=== PATIENT | male | born 1950 | race Caucasian/White ===

== ENCOUNTER 2018-08-26 12:55 | Emergency (ER) | payer MEDICARE, BC ==
[2018-08-26 14:11] LABS: #Basophils 0.1 thou/uL (0.0-0.2); #Eosinphils 0.2 thou/uL (0.0-0.7); #Lymphocytes 2.2 thou/uL (1.20-3.40); #Monocytes 0.5 thou/uL (0.11-0.59); #Neutrophils 4.2 thou/uL (1.40-6.50); %Basophils 0.7 % (0.0-1.0); %Eosinophils 2.3 % (0.0-10.0); %Lymphocytes 30.8 % (21.0-51.0); %Monocytes 6.8 % (0.0-10.0); %Neutrophils 59.3 % (42.0-75.0); Hemoglobin 13.5 g/dL (14.0-18.0); Mean Corpuscular HGB CONC 32.9 g/dL (32.0-36.0); Mean Corpuscular Hemoglobin 29.8 pg (27.0-31.0); Mean Corpuscular Volume 90.7 fL (78.0-98.0); Mean Platelet Volume 5.8 fL (7.4-10.4); Platelet Count 132 thou/uL (130-400); RBC Distribution Width 12.4 % (11.5-14.5); Red Blood Cell (RBC) Count 4.51 mill/uL (4.70-6.10); White Blood Cell (WBC) Count 7.1 thou/uL (4.8-10.8)
[2018-08-26 14:31] LABS: ALT (SGPT) 29 U/L (8-55); AST (SGOT) 16 U/L (5-34); Albumin 4.3 g/dL (3.4-4.8); Alkaline Phosphatase 65 U/L (40-150); Anion Gap 14 mmol/L (10-20); BUN (Urea Nitrogen) 25 mg/dL (8.4-25.7); Bilirubin, Total 0.3 mg/dL (0.2-1.2); Calc. Creatinine Clearance 0 mL/min (70-130); Calcium 9.4 mg/dL (7.8-10.44); Carbon Dioxide 24 mmol/L (23-31); Chloride 107 mmol/L (98-107); Estimated GFR-MDRD 57; Globulin 2.3 g/dL (2.4-3.5); Glucose 98 mg/dL (80-115); Potassium 3.9 mmol/L (3.5-5.1); Protein, Total 6.6 g/dL (5.8-8.1); Sodium 141 mmol/L (136-145)
[2018-08-26 14:38] LABS: Bilirubin Negative (Negative); Blood, Urine Negative (Negative); Clarity Clear (Clear); Glucose, Urine (Dipstick) Negative (Negative); Leukocyte Negative (Negative); Nitrite Negative (Negative); Protein, Urine (Dipstick) Negative (Neg-Trace); Urobilinogen 0.2 mg/dL (0.2-1.0); pH, Urine 5.5 (5.0-9.0)
--- NOTE | 2018-08-26 15:21 | CT ---
CT Chest Abd Pelvis W Con History: [Trauma. Fall off ladder.] Comparison: None. Findings: The lungs are clear. No pneumothorax. No contusion. There is a nodule within the lingula measuring up to 7 mm. No pericardial effusion. The sternum and manubrium are intact. Clavicles are intact. No displaced rib fracture. The costochondral junctions are intact. The liver, gallbladder, spleen, pancreas are unremarkable. No acute aortic injury. No mediastinal javid nopathy. No hydronephrosis. No acute renal injury. No free intraperitoneal gas or fluid. There is streak artifact from overlying belt buckle limiting evaluation of the urinary bladder. Small fat-containing umbilical hernia. No dilated loops of large or small bowel. Prostate is mildly enlarged. Osseous pelvis is intact. Hypodense foci are present within the thoracic vertebra at T8 likely reflec tive of an intraosseous hemangioma. No thoracic or lumbar spine compression fracture. The transverse processes are intact. Impression: No acute traumatic abnormality within the chest, abdomen, or pelvis. 7 mm nodule within the lingula. In a high-risk patient, CT at 6-12 months is recommended.
== END 2018-08-26 15:53 | disposition home or self-care (01) ==
LOC: MADERS 12:55
DX: S20.211A Contusion of right front wall of thorax, initial encounter (principal); E11.9 Type 2 diabetes mellitus without complications; E78.5 Hyperlipidemia, unspecified; F17.210 Nicotine dependence, cigarettes, uncomplicated; W17.89XA Other fall from one level to another, initial encounter; Z79.4 Long term (current) use of insulin
CPT/HCPCS: 71260; 74177; 80053; 81003; 85025; 94760